=== PATIENT | female | born 1960 | race Caucasian/White ===

== ENCOUNTER → 2018-06-22 | Outpatient (CLI) | payer OTHER | LOC: M SMT 14:45 | PROVIDERS: ATTEND Advanced Practice Midwife | DX: Z80.9 Family history of malignant neoplasm, unspecified (principal) ==

== ENCOUNTER → 2018-06-26 | Outpatient (CLI) | payer OTHER ==
--- NOTE | 2018-06-26 20:00 | REP ---
Clinical: Pelvic and perineal pain . Technique: Transabdominal pelvic ultrasound followed by transvaginal examination for better evaluation of the endometrium and adnexa with color Doppler evaluation of the ovaries. Findings: Bladder is unremarkable and measures 10.0 x 7.5 x 5.1 cm . Heterogeneous retroflexed uterus measures 6.2 x 3.5 x 4.3 cm with 1 cm calcified fibroid. The endometrial complex measures 6.1 mm thickness. No discrete uterine or endometrial abnormalities are appreciated. Right ovary is normal in appearance and vascularity without evidence for torsion. Right ovary measures 1.8 x 0.9 x 1.0 cm ; R I = 0.52 . Left ovary is not visualized. No pelvic fluid or adnexal mass lesion appreciated . Impression: 1. Heterogeneous retroflexed uterus with 1 cm calcified fibroid Electronically Signed by Dada Champion MD 06/26/2018 07:51 P
== END ==
LOC: M SMT 13:38
PROVIDERS: ATTEND Obstetrics & Gynecology
DX: R10.2 Pelvic and perineal pain (principal); D25.9 Leiomyoma of uterus, unspecified; N85.4 Malposition of uterus

== ENCOUNTER 2019-04-15 20:58 | Emergency (ER) | payer OTHER ==
[~2019-04-15] VITALS: Ht 165.1 cm; Wt 63.6 kg
[2019-04-15 20:58] VITALS: BP 136/76
[2019-04-15] MEDS ORDERED: no home meds (21:09)
[2019-04-15] MEDS ORDERED: CLEO300C2 PO (22:12)
[2019-04-15] MEDS ORDERED: CLINDAMYCIN 150 MG CAP PO ONE (22:15)
== END 2019-04-15 22:38 | disposition home or self-care (01) ==
LOC: M ED 20:58
DX: K02.9 Dental caries, unspecified (principal); K08.89 Other specified disorders of teeth and supporting structures; Z88.0 Allergy status to penicillin

== ENCOUNTER 2019-04-18 16:05 | Emergency (ER) | payer OTHER ==
[~2019-04-18] VITALS: Ht 162.6 cm; Wt 63.6 kg
[~2019-04-18 16:05] MED LIST: CLEO300C2 PO; no home meds
[2019-04-18] MEDS ORDERED: diphenhydrAMINE INJ 50MG/ML VIAL (J1200) IV ONE (16:30)
[2019-04-18] MEDS ORDERED: NS 1,000 ML IV ONE (16:30)
--- NOTE | 2019-04-18 16:47 | REP ---
Clinical: Acute chest pain . Comparison: 06/16/2012. Technique: PA and lateral. Findings: The mediastinum and cardiac silhouette are normal. The lung good are clear and without acute consolidation, effusion, or pneumothorax. The skeletal structures are intact and normal. Impression: 1. No acute cardiopulmonary process. Electronically Signed by Dada Champion MD 04/18/2019 04:39 P
[2019-04-18 17:23] LABS: BASO # 0.1 10^3/uL (0.0-0.2); BASO % 0.9 % (0.0-1.0); EOS % 0.4 % (0.0-3.0); HEMATOCRIT 44.5 % (36.0-47.0); HEMOGLOBIN 14.4 g/dl (12.0-15.5); LYMPH # 1.2 10^3/uL (1.5-5.0); MEAN CORPUSCULAR HEMOGLOBIN 28.9 pg (27.0-33.0); MEAN CORPUSCULAR HGB CONC 32.4 g/dl (32.0-36.5); MEAN CORPUSCULAR VOLUME 89.2 fl (80.0-96.0); MONO # 0.5 10^3/uL (0.0-0.8); MONO % 5.8 % (0.0-5.0); NEUTROPHILS % 77.4 % (36.0-66.0); PLATELET COUNT, AUTOMATED 326 10^3/uL (150-450); RED BLOOD COUNT 4.99 10^6/uL (4.00-5.40); WHITE BLOOD COUNT 7.7 10^3/uL (4.0-10.0)
[2019-04-18 17:31] VITALS: BP 129/59
[2019-04-18 17:42] LABS: ERYTHROCYTE SEDIMENTATION RATE 3 mm/hr (0-30)
[2019-04-18 17:52] LABS: ACETAMINOPHEN LEVEL < 2.0 UG/ML (10.0-30.0); ALBUMIN 4.1 GM/DL (3.2-5.2); ALT/SGPT 27 U/L (12-78); BILIRUBIN,DIRECT < 0.1 MG/DL (0.0-0.2); BILIRUBIN,TOTAL 0.3 MG/DL (0.2-1.0); BLOOD UREA NITROGEN 15 MG/DL (7-18); C REACTIVE PROTEIN QUANTITATIV < 0.30 MG/DL (0.00-0.30); CALCIUM LEVEL 9.7 MG/DL (8.5-10.1); CARBON DIOXIDE LEVEL 24 MEQ/L (21-32); CHLORIDE LEVEL 109 MEQ/L (98-107); CK-MB VALUE MASS 3.2 NG/ML (<3.6); CPK CREATINE PHOSPHOKINASE 183 U/L (26-192); CREATININE FOR GFR 0.67 MG/DL (0.55-1.30); GLOMERULAR FILTRATION RATE > 60.0 (>51); GLUCOSE, FASTING 92 MG/DL (70-100); MB/CK RELATIVE INDEX 1.75 (< OR =4); POTASSIUM SERUM 4.3 MEQ/L (3.5-5.1); SODIUM LEVEL 140 MEQ/L (136-145); TOTAL PROTEIN 7.6 GM/DL (6.4-8.2); TROPONIN I < 0.02 NG/ML (< 0.10)
[2019-04-18] MEDS ORDERED: ONDA4TAB6 PO (18:06)
--- NOTE | 2019-04-18 19:47 | ECGEPIP ---
[facility] - ED Test Date: 2019-04-18 Pat Name: FRANTZ WALLACE Department: Room: - Gender: Female Cash Analyst: deanne : 1960 Requested By: Sabiha Villavicencio Order Number: [id number] Reading MD: Sheng Rivas Measurements Intervals [place] Rate: 74 P: 57 MT: 157 QRS: 48 QRSD: 101 T: 45 QT: 367 QTc: 409 Interpretive Statements SINUS RHYTHM Nonspecific T wave abnormality Comparison tracing not on file Electronically Signed on 04-18-2019 19:47:34 EST by Sheng Rivas
== END 2019-04-18 18:41 | disposition home or self-care (01) ==
LOC: M ED 16:05
DX: R53.81 Other malaise (principal); R11.0 Nausea; R06.02 Shortness of breath; Z88.0 Allergy status to penicillin
CPT/HCPCS: 71046; 80048; 80076; 82550; 82553; 83605; 84443; 85025; 85652; 86140; 93005; 93041; 94760; 96361; 96374; 99284; G0480; J1200

== ENCOUNTER → 2021-05-21 | Outpatient (REF) | payer OTHER ==
[~2021-05-21] MED LIST changes: +ONDA4TAB6 PO
[2021-05-21 17:58] LABS: APPEARANCE, URINE CLEAR (CLEAR); BACTERIA, URINE AUTO NEGATIVE (NEGATIVE); BILIRUBIN, URINE AUTO NEGATIVE (NEGATIVE); BLOOD, URINE BLOOD NEGATIVE (NEGATIVE); COLOR, URINE STRAW (YELLOW); GLUCOSE, URINE (UA) AUTO NEGATIVE (NEGATIVE); KETONE, URINE AUTO NEGATIVE (NEGATIVE); LEUKOCYTE ESTERASE, URINE AUTO NEGATIVE (NEGATIVE); NITRITE, URINE AUTO NEGATIVE (NEGATIVE); PROTEIN, URINE AUTO NEGATIVE (NEGATIVE); RBC, URINE AUTO 1 /HPF (0-3); SPECIFIC GRAVITY URINE AUTO 1.005 (1.002-1.035); SQUAMOUS EPITHELIAL CELL UR AU 0 /HPF (0-6); UROBILINOGEN, URINE AUTO 0.2 mg/dL (0.0-2.0); WBC, URINE AUTO 0 /HPF (0-3)
== END ==
LOC: M LAB REF 17:16
PROVIDERS: ATTEND Physician Assistant
DX: N39.0 Urinary tract infection, site not specified (principal)